=== PATIENT | male | born 1955 | race Caucasian/White ===

== ENCOUNTER 2020-04-20 06:05 | Day surgery (SDC) | payer MEDICAID ==
[2020-04-20] VITALS (10 sets, daily range): BP systolic 106–152; BP diastolic 53–82
[~2020-04-20] VITALS: Ht 175.3 cm; Wt 67.4 kg
[~2020-04-20 06:05] MED LIST: EPIN0.3P17; OMEP20CA15 PO; ZOLP10TA5 PO
[2020-04-20] MEDS ORDERED: diphenhydrAMINE 25mg capsule PO PRN (06:30)
[2020-04-20] MEDS ORDERED: normal saline 1,000 ML IV SCH (06:30)
[2020-04-20] MEDS ORDERED: LORazepam 0.5 MG tablet PO PRN (06:30)
[2020-04-20] MEDS ORDERED: ATOR80TA PO (07:05)
[2020-04-20 07:21] LABS: BASOPHILS # (AUTO) 0.1 X10'3 (0-0.2); BASOPHILS % (AUTO) 1.1 % (0-1); EOSINOPHILS # (AUTO) 0.3 X10'3 (0-0.9); EOSINOPHILS % (AUTO) 3.1 % (0-6); HEMATOCRIT 42.4 % (42.0-52.0); HEMOGLOBIN 14.6 g/dl (14.0-17.9); LYMPHOCYTES # (AUTO) 2.4 X10'3 (1.1-4.8); LYMPHOCYTES % (AUTO) 28.9 % (21-51); MEAN CORPUSCULAR HGB CONC 34.4 g/dL (33.0-36.5); MEAN CORPUSCULAR VOLUME 95.8 FL (78-98); MEAN PLATELET VOLUME 8.6 FL (7.4-10.4); MONOCYTES # (AUTO) 0.5 X10'3 (0-0.9); NEUTROPHILS % (AUTO) 60.9 % (42-75); PLATELET COUNT 272 X10'3 (140-440); RED BLOOD COUNT 4.43 X10'6 (4.70-6.10); RED CELL DISTRIBUTION WIDTH 13.5 % (11.5-14.5); WHITE BLOOD COUNT 8.2 X10'3 (4.5-11.0)
[2020-04-20 07:25] LABS: ALBUMIN 3.7 G/DL (3.4-5.0); ANION GAP 8 (8-16); BLOOD UREA NITROGEN 14 MG/DL (7-18); BUN/CREATININE RATIO 12.8 (5.4-32.0); CALCIUM 9.6 MG/DL (8.5-10.1); CHLORIDE 105 MMOL/L (99-107); CREATININE 1.09 MG/DL (0.60-1.10); GLUCOSE 94 MG/DL (70-104); POTASSIUM 4.2 MMOL/L (3.5-5.1); SODIUM 143 MMOL/L (135-145); TOTAL CARBON DIOXIDE 30.2 MMOL/L (24-32); eGFR 68 ML/MIN
[2020-04-20] MEDS ORDERED: midazolam 2 mg/2 ml injection ONE ×3 (07:49→08:54)
[2020-04-20] MEDS ORDERED: LIDOcaine 1% (10mg/ml)w/preservative injection 20ml MDV ONE ×2 (07:49→09:03)
[2020-04-20] MEDS ORDERED: heparin 1,000unit/ml 10ml vial 10 ML ONE (07:49)
[2020-04-20] MEDS ORDERED: fentaNYL/PF 50MCG/1 ML 2ML syringe ONE (07:49)
[2020-04-20] MEDS ORDERED: iohexol 350MG/ML 100ml bottle IV ONE (07:50)
[2020-04-20] MEDS ORDERED: heparin 1,000 UNITS/NS 500ml 500 ML ONE (07:50)
[2020-04-20] MEDS ORDERED: iohexol 350 MG/ML 50ML vial IV ONE (07:57)
[2020-04-20] MEDS ORDERED: HYDROmorphone 1 mg/ml syringe ONE (09:04)
[2020-04-20] MEDS ORDERED: clopidogrel 300mg tablet ONE (09:29)
[2020-04-20] MEDS ORDERED: HYDROcodone/acetaminophen 10/325mg tab PO PRN (10:00)
[2020-04-20] MEDS ORDERED: OXAZEpam 15mg capsule PO PRN (10:00)
[2020-04-20] MEDS ORDERED: ondansetron/PF 4mg/2ml inj IV PRN (10:00)
[2020-04-20] MEDS ORDERED: acetaminophen 325mg tablet PO PRN (10:00)
[2020-04-20] MEDS ORDERED: HYDROcodone/acetaminophen 5mg/325mg tablet PO PRN (10:00)
[2020-04-20] MEDS ORDERED: proCHLORperazine 10 MG/2 ml inj IV PRN (10:00)
[2020-04-20] MEDS ORDERED: aspirin 81mg tab.chew PO ONE (10:00)
[2020-04-20] MEDS ORDERED: HYDROmorphone 1 mg/ml syringe IV ONE (12:30)
[2020-04-21] MEDS ORDERED: aspirin 325mg tablet, delayed-release (Ecotrin) PO SCH (08:00)
== END 2020-04-20 13:30 | disposition home or self-care (01) ==
LOC: SSTAY O 06:05
PROVIDERS: ATTEND Internal Medicine Interventional Cardiology
DX: I70.213 Atherosclerosis of native arteries of extremities with intermittent claudication, bilateral legs (principal); J44.9 Chronic obstructive pulmonary disease, unspecified; K21.9 Gastro-esophageal reflux disease without esophagitis; F17.210 Nicotine dependence, cigarettes, uncomplicated; E78.5 Hyperlipidemia, unspecified; G62.9 Polyneuropathy, unspecified; F32.9 Major depressive disorder, single episode, unspecified; Z88.0 Allergy status to penicillin; Z88.5 Allergy status to narcotic agent; Z79.899 Other long term (current) drug therapy
CPT/HCPCS: 36415; 37221; 37223; 75716; 80048; 85025; 85610; 93005; 99152; 99153; C1725; C1751; C1760; C1769; C1876; C1894; J1170; J1644; J2001; J2250; J3010; J7030; Q0163; Q9967; 36245; 75630; A4620; A6258